=== PATIENT | male | born 1960 | race Caucasian/White ===

== ENCOUNTER 2021-01-23 11:12 | Emergency (ER) | payer OTHER, SELFPAY ==
--- NOTE | ~2021-01-23 | CT_ITS ---
EXAMINATION: CT ABDOMEN AND PELVIS WITH CONTRAST CLINICAL INFORMATION: Nausea, emesis and ? SBO COMPARISON: None TECHNIQUE: Multidetector volumetric images were obtained from the superior aspect of the liver through the pubic symphysis following administration 85 mL of Omnipaque 350 intravenous contrast. Sagittal and coronal reformatted images were obtained on the technologist's workstation. Oral contrast: No This CT examination was performed using dose optimization techniques as appropriate, variously including the following: *Automated exposure control *Adjustment of mA and/or kV according to patient size (this includes techniques or standardized protocols for targeted exams where dose is matched to indication/reason for exam; i.e. extremities or head) *Use of iterative reconstruction technique DLP: 587 mGy-cm FINDINGS: LUNG BASES: The lung bases are clear. There is a small hiatal hernia. The heart size is normal. LIVER, GALLBLADDER, AND BILIARY TREE: The liver is normal in size, shape, and diffusely hypoattenuated. No focal hepatic lesion or biliary ductal dilatation is present. The gallbladder is distended and appears isodense to liver. No radiopaque calculi or wall thickening seen. The CBD is normal caliber. PANCREAS: Unremarkable. SPLEEN: Scattered calcification is seen in spleen.. ADRENAL GLANDS: Unremarkable. KIDNEYS AND URETERS: The kidneys are normal in size, shape, and attenuation. No hydronephrosis, hydroureter, or calculi seen. No perinephric stranding. There is a 5 mm hypodensity lower pole left kidney. BLADDER: Unremarkable. GASTROINTESTINAL TRACT: There is scattered stool, gas and diverticuli seen throughout the colon without colonic distention. The small bowel loops are normal caliber. The stomach is nondistended and appears unremarkable. No free air, inflammatory process or free fluid seen. ABDOMINAL WALL: A small umbilical hernia containing fat is noted. There are bilateral inguinal hernias containing fat. LYMPH NODES: Normal. VASCULAR: Unremarkable. PELVIC VISCERA: Prostate gland is mildly enlarged with central gland calcification.. OSSEOUS STRUCTURES: There are degenerative disc changes and spondylosis throughout lumbar spine. No acute fracture or lytic process seen. CT/CT abdomen pelvis w con IMPRESSION: No acute intra-abdominal process seen. Colonic diverticulosis without diverticulitis. Small hiatal hernia with a nondistended stomach. Mild hepatic steatosis without focal lesion. Isodense gallbladder but no radiopaque gallstones or wall thickening.
[2021-01-23 11:44] VITALS: BP 145/105; PULSE 118; RESP 18; TEMP 36.5; O2SAT 96; BMI 27.3
[2021-01-23 13:04] LABS: MANUAL DIFF FLAG NO
[2021-01-23 13:07] LABS: Basophils Absolute Auto 0.1 X10*3/uL (0.0-0.2); Basophils Percent Auto 0.7 % (0-2); Eosinophils Absolute Auto 0.2 X10*3/uL (0.0-0.4); Eosinophils Percent Auto 1.7 % (0-4); Hematocrit 44.6 % (42-52); Hemoglobin 15.7 g/dl (14.0-18.0); Imm Gran Abs Auto 0.03 X10*3/uL (0.00-0.03); Imm Gran Pct Auto 0.3 % (0.0-0.4); Lymphocytes Absolute Auto 1.1 X10*3/uL (1.2-4.9); Lymphocytes Percent Auto 11.8 % (20-40); Mean Corpuscular HGB Conc 35.2 g/dl (31.0-36.0); Mean Corpuscular Hemoglobin 31.2 pg (27.0-33.0); Mean Corpuscular Volume 88.5 fL (80-98); Monocytes Percent Auto 11.3 % (2-11); Neutrophils Absolute Auto 6.7 X10*3/uL (2.0-8.3); Neutrophils Percent Auto 74.2 % (45-73); Platelet Count 218 X10*3/uL (160-400); Red Blood Count 5.04 X10*6/uL (4.60-5.80); Red Cell Distribution Width 14.3 % (11.0-16.0)
[2021-01-23 13:30] LABS: Alanine Aminotransferase 66 U/L (0-40); Albumin Level 4.4 g/dL (3.5-5.0); Alkaline Phosphatase 88 U/L (39-117); Anion Gap 20 (12-20); Aspartate Amino Transferase 94 U/L (5-37); Blood Urea Nitrogen 12 mg/dL (9-16); Calcium 9.6 mg/dL (8.4-10.2); Carbon Dioxide 23 mmol/L (22-29); Chloride 105 mmol/L (96-108); Estimated Glomerular Filt Rate > 60; Glucose Random 112 mg/dL (60-115); Potassium 3.8 mmol/L (3.3-5.1); Sodium 144 mmol/L (135-145); Total Protein 7.6 g/dL (6.5-8.0)
--- NOTE | 2021-01-23 16:35 | ED_ITS ---
HPI - General Adult General Chief complaint: General Medical Stated complaint: throwing up flem Time Seen by Provider: 01/23/21 16:57 Source: patient Mode of arrival: ambulatory Limitations: no limitations History of Present Illness HPI narrative: patient presents to the ED for chronic nausea and vomiting for over 4 years that has worsened the past 2 days. Patient states not tolerating p.o. patient states history of GERD. Patient states mild burning sensation abdomen. He takes Prilosec. Related Data Previous Rx's Medication Instructions Recorded diphenhydramine HCl [Benadryl] 25 mg PO TID PRN #30 cap 01/23/21 metoclopramide HCl [Reglan] 10 mg PO Q6H PRN #12 tab 01/23/21 Allergies Allergy/AdvReac Type Severity Reaction Status Date / Time codeine Allergy Hives Verified 01/23/21 11:44 Penicillins Allergy Unknown Verified 01/23/21 11:44 Review of Systems Review of Systems: Yes all other systems are reviewed and are negative Constitutional: Constitutional: Reports as per HPI and Reports no additional constitutional complaints Eyes: Eyes: Reports as per HPI and Reports no additional eye complaints ENT: Reports system reviewed and no additional complaints, except as documented and Reports as per HPI Cardiovascular: Cardiovascular: Reports as per HPI and Reports no additional cardiovascular complaints Respiratory: Respiratory: Reports as per HPI and Reports no additional respiratory complaints Gastrointestinal: Gastrointestinal: Reports as per HPI, Reports no additional gastrointestinal complaints, Denies belching, Denies melena, Denies tenesmus, Denies change in stool character, Denies early satiety, Denies dyspepsia, Reports heartburn, Denies fecal incontinence, Denies diarrhea, Denies loose stools, Reports nausea and Reports vomiting Genitourinary: Genitourinary: Reports no additional male genitourinary complaints and Reports as per HPI Musculoskeletal: Musculoskeletal: Reports no additional musculoskeletal complaints and Reports as per HPI Neurologic: Reports system reviewed and no additional complaints, except as documented and Reports as per HPI Psychiatric: Psychiatric: Reports no additional psychiatric complaints and R eports as per HPI PMFSH Past Medical History Medical History (Updated 01/23/21 @ 21:42 by SHANIA Badillo) Arthritis HTN (hypertension) Surgical History (Updated 01/23/21 @ 11:47 by Ping Schaefer RN) H/O shoulder surgery Social History Social History Alcohol intake: current Alcohol intake frequency: former alcohol drinker Patient Tobacco Use Status: Former Tobacco user Smoked in Last 30 Days: No Use of substances other than those prescribed or required for medical reasons: No Advance Directives: No Advance Directives Information Provided: No Physical Exam Vital Signs: Vital Signs: Last Vital Signs Temp 98.9 F 01/23/21 20:51 Pulse 101 H 01/23/21 20:51 Resp 18 01/23/21 20:51 BP 141/91 H 01/23/21 20:51 Pulse Ox 95 01/23/21 20:51 Body Mass Index 27.3 Const: General: cooperative, healthy appearing, comfortable, no acute distress, well developed, alert, awake and Physically active Orientation/consciousness: patient oriented x3 HENMT: Head: Yes normal to inspection, Yes No palpable skull fracture present, Yes normocephalic, Yes atraumatic and No abrasion Eyes: General: appearance normal, both eyes and all related structures Neck: Neck: Yes normal visual inspection, Yes full ROM, Yes no lymphadenopathy, Yes no meningeal signs, Yes trachea midline, Yes supple and No tender Chest: Chest palpation & inspection: normal inspection of the chest and normal palpation of entire chest wall Resp: Effort & Inspection: normal respiratory effort and able to speak in c omplete sentences Auscultation: clear to auscultation bilaterally Cardio: Jugular venous distension: no JVD Heart sounds: S1 normal heart sound present and S2 normal heart sound present GI: Inspection: Yes normal to inspection and No abdominal wall ecchymosis Palpation (GI): Soft to palpation, not firm, nontender, no guarding and not rigid : General: No CVA tenderness and Yes no CVA tenderness Back/Spine/Pelvis: Back: no CVA tenderness, No CVA tenderness and No back tenderness Skin: General skin exam: no rashes or lesions noted and elasticity normal Neuro: General: patient oriented x3, gait normal, no meningeal signs and CN's II-XI intact bilaterally Cranial nerves: Yes CN's II-XII intact bilaterally Extrem: General: Yes normal to inspection and Yes full ROM Psych: Appearance: grossly normal, well kempt and not disheveled Course Course Course Narrative: Patient had medical evaluation including EKG and cardiac enzymes. Patient is retching, but does not have any abdominal tenderness. Reevaluation(s) Reevaluation #1: EKG sinus tachycardic. First troponin negative. Liver enzymes normal. Patient given Benadryl, Zofran and Pepcid and no longer vomiting or retching. Patient will be sent for abdominal CT scan. waiting for you Time: 19:37 Reevaluation #2: 2nd troponin negative. CT scan negative for any acute intra- abdominal processes. UA negative for UTI. Patient COVID swab negative. spoke with family and he states this issue has been going for years and PCP and specialist does not know what the cause. Patient passed p.o. challenge. Patient will be discharged. Time: 21:29 Medical Decision Making MDM Narrative Medical decision making narrative: nausea and vomiting Lab Data Result diagrams: 01/23/21 12:58 01/23/21 12:58 Labs: Lab Results 01/23/21 01/23/21 01/23/21 Range/Units 12:58 12:58 17:04 WBC 9.0 (4.8-10.8) X10*3/uL RBC 5.04 (4.60-5.80) X10*6/uL Hgb 15.7 (14.0-18.0) g/dl Hct 44.6 (42-52) % MCV 88.5 (80-98) fL MCH 31.2 (27.0-33.0) pg MCHC 35.2 (31.0-36.0) g/dl RDW 14.3 (11.0-16.0) % Plt Count 218 (160-400) X10*3/uL MPV 9.0 L (9.4-12.4) fL Immature Gran % (Auto) 0.3 (0.0-0.4) % Neut % (Auto) 74.2 H (45-73) % Lymph % (Auto) 11.8 L (20-40) % [place] % (Auto) 11.3 H (2-11) % Eos % (Auto) 1.7 (0-4) % Baso % (Auto) 0.7 (0-2) % Lymph # (Auto) 1.1 L (1.2-4.9) X10*3/uL [place] # (Auto) 1.0 (0.1-1.2) X10*3/uL Eos # (Auto) 0.2 (0.0-0.4) X10*3/uL Baso # (Auto) 0.1 (0.0-0.2) X10*3/uL Abs Immat Gran (auto) 0.03 (0.00-0.03) X10*3/uL Absolute Neuts (auto) 6.7 (2.0-8.3) X10*3/uL Absolute Nucleated RBC 0.000 (0.0-0.012) X10*3/uL Nucleated RBC % (auto) 0.0 (0.0-0.2) /100WBC PT 12.4 (10.8-13.0) SEC INR 1.0 (0.9-1.1) Sodium 144 (135-145) mmol/L Potassium 3.8 (3.3-5.1) mmol/L Chloride 105 (96-108) mmol/L Carbon Dioxide 23 (22-29) mmol/L Anion Gap 20 (12-20) BUN 12 (9-16) mg/dL Creatinine 0.88 (0.5-1.4) mg/dL Estim Creat Clear Calc 89.0 Estimated GFR > 60 Random Glucose 112 (60-115) mg/dL Calcium 9.6 (8.4-10.2) mg/dL Total Bilirubin 1.0 (0.0-1.0) mg/dL AST 94 H (5-37) U/L ALT 66 H (0-40) U/L Alkaline Phosphatase 88 (39-117) U/L Troponin I High Sens (<3.5-35.0) ng/L Total Protein 7.6 (6.5-8.0) g/dL Albumin 4.4 (3.5-5.0) g/dL Urine Color Urine Appearance Urine pH (5.0-8.0) Ur Specific [place] (1.005-1.025) Urine Protein (NEG-TRACE) MG/DL Urine Glucose (UA) (NEG) MG/DL Urine Ketones (NEG) MG/DL Urine Blood (NEG) Urine Nitrite (NEG) Ur Leukocyte Esterase (NEG) COVID-19 (AYANNA) (Negative) COVID-19 Clin Com 01/23/21 01/23/21 01/23/21 Range/Units 17:04 17:04 20:10 WBC (4.8-10.8) X10*3/uL RBC (4.60-5.80) X10*6/uL Hgb (14.0-18.0) g/dl Hct (42-52) % MCV (80-98) fL MCH (27.0-33.0) pg MCHC (31.0-36.0) g/dl RDW (11.0-16.0) % Plt Count (160-400) X10*3/uL MPV (9.4-12.4) fL Immature Gran % (Auto) (0.0-0.4) % Neut % (Auto) (45-73) % Lymph % (Auto) (20-40) % [place] % (Auto) (2-11) % Eos % (Auto) (0-4) % Baso % (Auto) (0-2) % Lymph # (Auto) (1.2-4.9) X10*3/uL [place] # (Auto) (0.1-1.2) X10*3/uL Eos # (Auto) (0.0-0.4) X10*3/uL Baso # (Auto) (0.0-0.2) X10*3/uL Abs Immat Gran (auto) (0.00-0.03) X10*3/uL Absolute Neuts (auto) (2.0-8.3) X10*3/uL Absolute Nucleated RBC (0.0-0.012) X10*3/uL Nucleated RBC % (auto) (0.0-0.2) /100WBC PT (10.8-13.0) SEC INR (0.9-1.1) Sodium (135-145) mmol/L Potassium (3.3-5.1) mmol/L Chloride (96-108) mmol/L Carbon Dioxide (22-29) mmol/L Anion Gap (12-20) BUN (9-16) mg/dL Creatinine (0.5-1.4) mg/dL Estim Creat Clear Calc Estimated GFR Random Glucose (60-115) mg/dL Calcium (8.4-10.2) mg/dL Total Bilirubin (0.0-1.0) mg/dL AST (5-37) U/L ALT (0-40) U/L Alkaline Phosphatase (39-117) U/L Troponin I High Sens < 3.5 3.6 (<3.5-35.0) ng/L Total Protein (6.5-8.0) g/dL Albumin (3.5-5.0) g/dL Urine Color Urine Appearance Urine pH (5.0-8.0) Ur Specific [place] (1.005-1.025) Urine Protein (NEG-TRACE) MG/DL Urine Glucose (UA) (NEG) MG/DL Urine Ketones (NEG) MG/DL Urine Blood (NEG) Urine Nitrite (NEG) Ur Leukocyte Esterase (NEG) COVID-19 (AYANNA) Negative (Negative) COVID-19 Clin Com See Note 01/23/21 Range/Units 20:10 WBC (4.8-10.8) X10*3/uL RBC (4.60-5.80) X10*6/uL Hgb (14.0-18.0) g/dl Hct (42-52) % MCV (80-98) fL MCH (27.0-33.0) pg MCHC (31.0-36.0) g/dl RDW (11.0-16.0) % Plt Count (160-400) X10*3/uL MPV (9.4-12.4) fL Immature Gran % (Auto) (0.0-0.4) % Neut % (Auto) (45-73) % Lymph % (Auto) (20-40) % [place] % (Auto) (2-11) % Eos % (Auto) (0-4) % Baso % (Auto) (0-2) % Lymph # (Auto) (1.2-4.9) X10*3/uL [place] # (Auto) (0.1-1.2) X10*3/uL Eos # (Auto) (0.0-0.4) X10*3/uL Baso # (Auto) (0.0-0.2) X10*3/uL Abs Immat Gran (auto) (0.00-0.03) X10*3/uL Absolute Neuts (auto) (2.0-8.3) X10*3/uL Absolute Nucleated RBC (0.0-0.012) X10*3/uL Nucleated RBC % (auto) (0.0-0.2) /100WBC PT (10.8-13.0) SEC INR (0.9-1.1) Sodium (135-145) mmol/L Potassium (3.3-5.1) mmol/L Chloride (96-108) mmol/L Carbon Dioxide (22-29) mmol/L Anion Gap (12-20) BUN (9-16) mg/dL Creatinine (0.5-1.4) mg/dL Estim Creat Clear Calc Estimated GFR Random Glucose (60-115) mg/dL Calcium (8.4-10.2) mg/dL Total Bilirubin (0.0-1.0) mg/dL AST (5-37) U/L ALT (0-40) U/L Alkaline Phosphatase (39-117) U/L Troponin I High Sens (<3.5-35.0) ng/L Total Protein (6.5-8.0) g/dL Albumin (3.5-5.0) g/dL Urine Color YELLOW Urine Appearance CLEAR Urine pH 6.0 (5.0-8.0) Ur Specific [place] <= 1.005 (1.005-1.025) Urine Protein NEG (NEG-TRACE) MG/DL Urine Glucose (UA) NEG (NEG) MG/DL Urine Ketones 40 (NEG) MG/DL Urine Blood NEG (NEG) Urine Nitrite NEG (NEG) Ur Leukocyte Esterase NEG (NEG) COVID-19 (AYANNA) (Negative) COVID-19 Clin Com ECG Data Interpretation: phencyclidine cardia. Reticular rate 111. Pr interval 152. QRS 82. QTC 459. Negative STEMI Discharge Plan Discharge Clinical Impression: Nausea & vomiting Patient Disposition: Home, Self-Care Instructions: Acute Nausea and Vomiting (ED) Additional Instructions: return to the ED for any abdominal pain, MVA tolerate solid food/liquid, fever, chills, intractable nausea / vomiting, dysuria, hematuria, flank pain, or any other concerning symptoms. Your EKG and blood work came back negative for heart attack. Your COVID swab came back negative. Your UA came back negative for UTI. Your abdominal CT scan came back negative for any acute intra- abdominal processes. Please follow-up with your PCP for referral to Gastroenterology if indicated. Prescriptions: New metoclopramide HCl [Reglan] 10 mg tablet 10 mg PO Q6H PRN (Reason: nausea and vomiting) Qty: 12 RF: 0 diphenhydramine HCl [Benadryl] 25 mg capsule 25 mg PO TID PRN (Reason: nausea and vomiting) Qty: 30 RF: 0 Referrals: Richar Worley [Physician] - 2 days ( chronic nausea and vomiting) Print Language: Estonian
--- NOTE | 2021-01-23 16:51 | PC.NURSE ---
josey garcia notified of n/v.
--- NOTE | 2021-01-23 17:01 | ECG_ITS ---
Test Reason : ABD PAIN Blood Pressure : / mmHG Vent. Rate : 111 BPM Atrial Rate : 111 BPM P-R Int : 152 ms QRS Dur : 082 ms QT Int : 338 ms P-R-T Axes : 041 -43 050 degrees QTc Int : 459 ms Sinus tachycardia Left axis deviation Nonspecific ST abnormality Abnormal ECG No previous ECGs available Referred By: Freedom Boss Electronically Signed By:HAI BLACKMON MD
[2021-01-23 17:06] VITALS: BP 144/105; PULSE 112; RESP 24; TEMP 36.9; O2SAT 96
[2021-01-23] MEDS: 0.9 % Sodium Chloride 1,000 ML 999 ML IV ×2 (17:09)
[2021-01-23] MEDS: ondansetron HCL 4 MG/2 ML VIAL IVPUSH (17:10)
[2021-01-23] MEDS: diphenhydrAMINE HCL 50 MG/ML VIAL IVPUSH (17:11)
[2021-01-23] MEDS: Famotidine/PF 20 MG/2 ML VIAL IVPUSH (17:12)
[2021-01-23 17:22] LABS: Prothrombin Time 12.4 SEC (10.8-13.0)
[2021-01-23 17:27] LABS: COVID-19 Test Negative (Negative)
[2021-01-23 18:14] LABS: Troponin-I High Sensitivity < 3.5 ng/L (<3.5-35.0)
[2021-01-23] MEDS: iohexoL 350 MG/ML 100 ML INFUS..BTL IV (18:54)
[2021-01-23 18:55] VITALS: BP 141/91; PULSE 99; RESP 16; TEMP 37.1; O2SAT 99
--- NOTE | 2021-01-23 19:42 | PC.NURSE ---
pT BEGAN EXPIRENCING TREMORS AND ANXIETY POST ADMINISTERING HOME VENTOLIN. PATIENT RE EDUCATED TO NOTIFY RN REGARDING SYMPTOMS CHANGE. PT LAUGHED AND APOLOGIZED. wHOOPS SORRY I TAKE THIS ALL THE TIME AT HOME, I DIDN'T KNOW .
--- NOTE | 2021-01-23 19:46 | PC.NURSE ---
[facility] NOTIFIED DELAY IN LABS DUE TO COMPUTER SYSTEM BEING DOWN.
[2021-01-23 20:17] LABS: Appearance Urine CLEAR; Color Urine YELLOW; Glucose Urine UA NEG (NEG); Leukocyte Esterase Urine NEG (NEG); Nitrite Urine NEG (NEG); Specific Gravity - Urine <= 1.005 (1.005-1.025); Urine Blood NEG (NEG); Urine Ketones 40 MG/DL (NEG); Urine Protein NEG (NEG-TRACE)
[2021-01-23 20:51] VITALS: BP 141/91; PULSE 101; RESP 18; TEMP 37.2; O2SAT 95
[2021-01-23 21:08] LABS: Troponin-I High Sensitivity 3.6 ng/L (<3.5-35.0)
--- NOTE | 2021-01-23 21:18 | PC.NURSE ---
PT TOLERATING PO AT THIS TIME.
== END 2021-01-23 22:11 | disposition home or self-care (01) ==
PROVIDERS: Physician Assistant; Emergency Provider Emergency Medicine; PCP Hospitalist
DX: R11.2 Nausea with vomiting, unspecified (principal); I10 Essential (primary) hypertension; Z20.822 Contact with and (suspected) exposure to COVID-19
CPT/HCPCS: 36415; 74177; 80053; 81003; 84484; 85025; 85610; 87635; 93005; 96361; 96374; 96375; 99284; J1200; J2405; Q9967